=== PATIENT | female | born 1990 | race Caucasian/White ===

== ENCOUNTER 2021-10-08 11:15 | Outpatient (RCR) | payer OTHER, SELFPAY ==
--- NOTE | 2021-09-23 15:15 | PTOPEVAL ---
PHYSICAL THERAPY EVALUATION AND PLAN OF CARE Thank you for referring Eileen Venegas to [facility] [place].? The patient is scheduled to be seen for therapy 2x/week for 4 weeks. Please review, sign, date and return this plan of care MARGARET. I agree with and certify that the following plan of care is medically necessary. Referring Physician Date Attending Provider: Makeda Thayer, [employer] Diagnosis neck pain and upper back pain Onset chronic Subjective Information Reports chronic head and neck Query Text:As Reported By Patient/ pain. Idiopathic intracranial Family hypertension diagnosed in 2018 . She has a lot of pressure around her skull. Found a lesion on brain stem in April 2021. States progressively worsening pain. Reports visual changes, dizziness, non -epilieptic seizures. More stress increases seizure frequency. Has a significant history for migraines and it is progressing into neck pain. Would like to discuss her knee at a future date. May need to get an MD Order. Self Report Pain Assessment Spine, Cervical Reported Pain Level 6 Pain Description Aching,Pressure Pain Frequency Chronic,Continuous Lowest Pain Intensity 6 Greatest Pain Intensity 9 Pain Score Pain Score 6: Self Report Interventions Used Interventions Used By Clinicians Exercise,Manual Therapy Techniques Pain Relief Interventions Used By Medication Patient Other Alleviating Interventions sleep, marijuana Cervical and Lumbar ROM Cervical ROM Cervical Flexion (0-60) 30 Query Text:Active in Degrees Cervical Extension (0-70) 55 Query Text:Active in Degrees Cervical Rotation Right (0-90) 66 Query Text:Active in Degrees Cervical Rotation Left (0-90) 77 Query Text:Active in Degrees Upper Extremity Range of Motion General Upper Extremity Range of Motion Reason Not Measured WFL/Left,WFL/Right Gross Upper Extremity Range of Motion left shoulder is tight at end Comments range with decrease scapular downward rotation General Upper Extremity Strength Reason Not Measured WFL/Left,WFL/Right Gross Upper Extremity Strength Comments poor periscapular activation; middle trapezius R: 3/5, left: 3+/5; lower trapezius R: 3-/5
--- NOTE | 2021-09-30 13:37 | PCPTNOTE ---
Patient called & rescheduled today's appointment this date.
--- NOTE | 2021-10-04 14:39 | PCPTNOTE ---
Patient called & cancelled scheduled appointment this date due to not feeling well.
--- NOTE | 2021-10-11 12:48 | PCPTNOTE ---
Patient did not show up for scheduled appointment this date. Called and had to leave a message.
--- NOTE | 2021-10-14 13:30 | PCPTNOTE ---
Patient called & cancelled scheduled appointment this date due to can't make it.
--- NOTE | 2021-10-16 12:55 | PCPTNOTE ---
Patient did not show up for scheduled appointment this date. Called and had to leave a message.
--- NOTE | 2021-10-22 16:24 | PCPTNOTE ---
Patient did not show up for scheduled appointment this date.
--- NOTE | 2021-10-22 16:25 | PCPTNOTE ---
Attending Provider: Makeda Thayer, ARTISTIC DIRECTOR Patient:Eileen Venegas Date of :1990 PHYSICAL THERAPY DISCHARGE SUMMARY. Patient has not returned for any further treatments since 10/08/2021. She no call, no showed for her progress report this date. This makes 3 cancels and 3 no shows during her plan of care, therefore she will be discharged at this time. Patient?s initial visit was on 09/23/2021 14:00 and she had a total of 4 visits. Thank you for referring this patient to [facility]. Please review, sign, date and return this discharge summary MARGARET. I have been updated about the patient's current status and I agree with discharge from the above service at this time. Referring Physician Date
== END 2021-11-01 15:28 | disposition home or self-care (01) ==
LOC: ANHPT 11:15
PROVIDERS: PCP Nurse Practitioner Family; Visit Provider Nurse Practitioner Gerontology
DX: M54.2 Cervicalgia (principal); M54.9 Dorsalgia, unspecified
CPT/HCPCS: 97014; 97110; 97140; 97162; 99199; G0283

== ENCOUNTER 2021-12-05 00:40 | Emergency (ER) | payer MEDICARE, MEDICAID, SELFPAY ==
--- NOTE | ~2021-12-05 | CT_ITS ---
EXAMINATION: CT abdomen pelvis w con DATE: 12/05/2021 06:25 INDICATION: Right upper quadrant abdominal pain, nausea, vomiting and chills TECHNIQUE: Computed tomography (CT) of the abdomen and pelvis was performed with 100 mL Omnipaque-350 intravenous contrast. Automated exposure control and iterative reconstruction technique were employe d. The dose-length product was 1542.59 mGy-cm. COMPARISON: None FINDINGS: Lung bases are clear. Heart size is normal. No pericardial or pleural effusion. Diffuse hepatic steat osis with focal sparing along the gallbladder fossa. Gallbladder, spleen, pancreas, bilateral adrenal glands and kidneys are normal. Calcified appendicolith within the midportion of the otherwise normal appendix with no periappendiceal inflammatory stranding to suggest acute appendicitis. Bowels are no rmal with no wall thickening or obstruction. Bladder, anteverted uterus and bilateral adnexa are unre markable. No free intraperitoneal gas or fluid. No pathologically enlarged abdominal or pelvic lympha denopathy. Mild thoracic and lumbosacral spondylosis. IMPRESSION: 1. Calcified appendicolith within the otherwise normal appendix. No acute intra-abdominal/pelvic proc ess. Reviewed, dictated and finalized at location A. IMPRESSION: 1. Calcified appendicolith within the otherwise normal appendix. No acute intra -abdominal/pelvic process.
[2021-12-05 01:06] VITALS: BP 119/52; PULSE 70; RESP 18; TEMP 36.6; O2SAT 99
[2021-12-05 02:13] LABS: Basophils Percent Auto 0.3 % (0.2-1.2); Eosinophils Absolute Auto 0.3 K/mm3 (0-0.3); Eosinophils Percent Auto 1.9 % (0-4.4); Hematocrit 46.3 % (37.0-47.0); Hemoglobin 15.1 g/dL (12.0-15.0); Immature Granulocyte Absolute 0.06 K/mm3 (0.00-0.031); Immature Granulocyte Percent A 0.4 % (0-0.5); Lymphocytes Absolute Auto 4.18 K/mm3 (0.9-3.2); Lymphocytes Percent Auto 27.2 % (18.3-44.2); Mean Corpuscular HGB Conc 32.6 g/dl (32-36); Mean Corpuscular Hemoglobin 29.5 pg (26-34); Mean Corpuscular Volume 90.6 fl (80-100); Mean Platelet Volume 11.1 fl (7.4-10.4); Monocytes Absolute Auto 0.9 K/mm3 (0.1-0.6); Monocytes Percent Auto 5.5 % (2.6-8.5); Neutrophils Percent Auto 64.7 % (45.5-73.1); Platelet Count Result 324 k/mm3 (150-375); Red Blood Count 5.11 M/mm3 (4.2-5.4); White Blood Count 15.4 K/mm3 (4.5-10.0)
[2021-12-05 02:27] LABS: Alanine Aminotransferase 27 U/L (6-35); Albumin Level 4.3 g/dL (3.5-5.1); Alkaline Phosphatase 72 U/L (38-126); Anion Gap 11 mmol/L (8-16); Aspartate Amino Transferase 34 U/L (14-36); Bilirubin,Total 0.5 mg/dL (0.2-1.3); Blood Urea Nitrogen 15 mg/dL (7-17); Calcium 8.7 mg/dL (8.4-10.2); Carbon Dioxide 20 mmol/L (22-30); Chloride 110 mmol/L (98-107); Estimated CRCL calculation 121 ml/min; Estimated Glomerular Filt Rate > 60; Glucose 99 mg/dL (65-110); Lipase 170 U/L (23-300); Potassium 4.1 mmol/L (3.4-5.0); Sodium 141 mmol/L (137-145)
--- NOTE | 2021-12-05 03:57 | ED.ABDPAIN ---
HPI - Abdominal Pain General Chief Complaint: Abdominal Pain Stated Complaint: ruq abd pain, n/v Time Seen by Provider: 12/05/21 01:27 History of Present Illness HPI narrative: Patient states 2 days ago she started having nausea and vomiting, and pain in her right upper quadrant. Some chills; no issues with her gall bladder in the past. Related Data Allergies Allergy/AdvReac Type Severity Reaction Status Date / Time Sulfa (Sulfonamide Allergy Hives Verified 12/05/21 01:12 Antibiotics) acetazolamide AdvReac Other Verified 12/05/21 01:13 [From [employer]] Review of Systems Review of Systems: CONST: No fever. HEENT: No sore throat C/V: No chest pain RESP: No cough GI: Reports abdominal pain, nausea, vomiting : No dysuria. M/S: No joint pain. SKIN: No rash. NEURO: [No headache or focal numbness or weakness] PSYCH: [No depression] [facility] Past Medical History Medical History (Updated 12/05/21 @ 07:48 by Celena Vásquez MD) History of lumbar puncture Pseudotumor cerebri Surgical History Surgical History (Updated 12/05/21 @ 04:01 by Celena Vásquez MD) No significant past surgical history Exam Narrative: EXAMINATION OF ORGAN SYSTEMS/BODY AREAS: Constitutional: Vital signs per nursing GENERAL:[No acute distress, non-toxic appearing.] HEAD: Normal with no signs of head trauma. EYES: EOMI, conjunctiva normal ENT: Hearing grossly intact LUNGS: Nonlabored breathing. HEART: [Regular rate and rhythm] ABD: [Soft], [minimally tender to palpation right upper quadrant] EXT: Normal range of motion SKIN: [No rashes or lesions.] NEURO: [Alert and oriented x 3. No gross focal sensory or strength deficits.] PSYCH: Normal affect Course Vital Signs Vital signs: Vital Signs Temperature 97.8 F 12/05/21 01:06 Pulse Rate 70 12/05/21 01:06 Respiratory Rate 18 12/05/21 01:06 Blood Pressure 119/52 L 12/05/21 01:06 Pulse Oximetry 99 12/05/21 01:06 Oxygen Delivery Room Air 12/05/21 01:06 Temperature 97.8 F 12/05/21 01:06 Pulse Rate 60 12/05/21 07:32 Respiratory Rate 15 12/05/21 07:32 Blood Pressure 106/63 12/05/21 07:32 Pulse Oximetry 96 12/05/21 07:32 Oxygen Delivery Room Air 12/05/21 01:06 MDM - Abdominal Pain MDM Narrative Medical decision making narrative: Electronic medical record was reviewed. Patient presented to the ED with complaint of [abdominal pain and vomiting]. Vitals [were within acceptable limits]. Physical exam revealed [tenderness to palpation in right upper quadrantabdomen]. Based on the patient's history and physical exam, my differential includes but is not limited to [gastritis, gastroenteritis, cholecystitis, pancreatitis, UTI]. [IV access was established by nursing staff. Patient was given zofran]. CBC, BMP, lipase, LFTs, bilirubin and alk phos were obtained. Labs were pertinent for leukocytosis. [Decision was made to obtain a CT-abdomen to evaluate for acute abdominal process or biliary etiology.] This shows normal gallbladder, but she does have an appendicolith without any signs of appendicitis. On reevaluation, patient is feeling better, repeat exam shows no new or worsening tenderness, patient is agreeable with going home at this time with follow-up to her primary care doctor. I have informed her of the diagnostic results, as well as the importance of returning to the ER if her pain returns or if she cannot tolerate p.o., as she may be at higher risk of developing appendicitis. Patient reports understanding and agreement. Lab Data Result diagrams: 12/05/21 02:08 12/05/21 02:08 Labs: Lab Results 12/05/21 12/05/21 12/05/21 Range/Units 02:08 02:08 05:59 WBC 15.4 H (4.5-10.0) K/mm3 RBC 5.11 (4.2-5.4) M/mm3 Hgb 15.1 H (12.0-15.0) g/dL Hct 46.3 (37.0-47.0) % MCV 90.6 (80-100) fl MCH 29.5 (26-34) pg MCHC 32.6 (32-36) g/dl RDW 12.0 (11.5-14.5) % Plt Count 324 (150-37
[2021-12-05] MEDS: ONDANSETRON INJ 4 MG/2 ML VIAL IV PUSH (03:59)
--- NOTE | 2021-12-05 04:13 | PC.NURSE ---
Pt stated she was unable to void.
[2021-12-05] MEDS: SODIUM CHLORIDE 0.9% IV 1,000 ML 999 ML (04:16)
[2021-12-05 06:19] LABS: Appearance Urine Clear (Clear); Bilirubin Urine 1+ (Negative); Blood Urine Negative (Negative); Color Urine Yellow (Yellow); Glucose Urine UA Negative (Negative); Ketones Urine Negative (Negative); Leukocyte Esterase Ur Negative LEU/UL (Negative); Nitrate Urine Negative (Negative); Protein Urine Negative (Negative); Specific Grav Ur >= 1.030 (1.001-1.035); Urobilinogen Urine 0.2 mg/dL (<2.0); pH Urine 5.5 (5.0-9.0)
[2021-12-05 06:20] VITALS: BP 107/61; PULSE 58; RESP 16; O2SAT 98
[2021-12-05 06:33] LABS: Bacteria Urine Trace /hpf; Calcium Oxalate Crystals Urine Present /hpf; Mucus Urine Rare /lpf; RBC Urine 0-2 /hpf (0-2); Squamous Epithelial Cell Urine Occasional /hpf (Few); WBC Urine 0-3 /hpf
[2021-12-05 06:35] LABS: Add Urine Microscopic? YES
--- NOTE | 2021-12-05 07:25 | PC.NURSE ---
Report given to HUANG Monte.
--- NOTE | 2021-12-05 07:31 | PC.NURSE ---
Assumed care of pt, pt is resting on stretcher w/ equal chest rise and fall. Family member at bedside. VSS.
[2021-12-05 07:32] VITALS: BP 106/63; PULSE 60; RESP 15; O2SAT 96
== END 2021-12-05 08:05 | disposition home or self-care (01) ==
PROVIDERS: Emergency Provider Emergency Medicine; PCP Nurse Practitioner Family
DX: R10.11 Right upper quadrant pain (principal); R11.2 Nausea with vomiting, unspecified; G93.2 Benign intracranial hypertension
CPT/HCPCS: 36415; 74177; 80053; 81001; 81025; 83690; 85025; 96361; 96374; 99284; J2405; J7030; Q9967